=== PATIENT | female | born 1985 | race Caucasian/White ===

== ENCOUNTER → 2017-11-12 07:54 | Outpatient (CLI) | payer OTHER, SELFPAY ==
--- NOTE | 2017-11-12 13:44 | BRONCHALL ---
Bronchoprovocation Challenge - Bronchoprovocation Challenge Bronchoprovocation Challenge: BRONCHOPROVOCATION STUDY INTERPRETATION Brief HPI: Patient is a 32 year old female, currently under the care of Dr. Parekh, who presents to [facility] for a bronchoprovocation study secondary to diagnosis of cough. Respiratory therapist reports good effort and reproducible results. Patient did report to having some coffee the morning of testing. Interpretation: Initial spirometry showed no large airways obstructive ventilatory defect. The patient was then given increasingly concentrated doses of methacholine in a stepwise fashion, using a modified ATS protocol. The patient?s maximum reduction in FEV1 was 10 percent predicted. Impression: Negative Bronchoprovocation study. This is NOT consistent with the diagnosis of asthma. The use of caffeine on the day of testing does increase the risk of a false negative test. If still clinically concerned, repeat testing would not be unreasonable.
--- NOTE | 2017-11-12 13:47 | BRONCHALL_ITS ---
Bronchoprovocation Challenge - Bronchoprovocation Challenge Bronchoprovocation Challenge: BRONCHOPROVOCATION STUDY INTERPRETATION Brief HPI: Patient is a 32 year old female, currently under the care of Dr. Parekh , who presents to [facility] for a bronchoprovocation study secondary to diagnosis of cough. Respiratory therapist reports good effort and reproducible results. Patient did report to having some coffee the morning of testing. Interpretation: Initial spirometry showed no large airways obstructive ventilatory defect. The patient was then given increasingly concentrated doses of methacholine in a stepwise fashion, using a modified ATS protocol. The patient?s maximum reduction in FEV1 was 10 percent predicted. Impression: Negative Bronchoprovocation study. This is NOT consistent with the diagnosis of asthma. The use of caffeine on the day of testing does increase the risk of a false negative test. If still clinically concerned, repeat testing would not be unreasonable.
== END ==
PROVIDERS: Family Provider Internal Medicine; PCP Internal Medicine; Visit Provider Internal Medicine
DX: R05 Cough (principal); R00.2 Palpitations; R42 Dizziness and giddiness
CPT/HCPCS: 93880; 94070; 95070; J3490; J7674

== ENCOUNTER → 2018-01-19 12:26 | Outpatient (CLI) | payer OTHER, SELFPAY ==
--- NOTE | 2018-01-19 12:32 | ECHOD_ITS ---
Reason For Study: CHEST PAIN Procedure This was a 2D Doppler, Color Flow transthoracic echocardiogram. Exam performed in department. Left Ventricle Normal LV size. Left ventricular systolic function is normal. The estimated ejection fraction is 60 %. Normal diastology for age. No regional wall motion abnormalities noted. Right Ventricle Normal RV size. Normal systolic function. Atria Normal left atrium. Normal right atrium. No doppler evidence for ASD. Mitral Valve There is no mitral annular calcification. Normal mitral valve. Trivial mitral valve insufficiency. Tricuspid Valve Normal tricuspid valve. Trivial tricuspid valve insufficiency. Right ventricular systolic pressure estimated to be 27 mmHg. Aortic Valve Trisinus/trileaflet aortic valve. Normal aortic valve. Pulmonic Valve The pulmonic valve is not well visualized. Great Vessels Normal sized aortic root. Pericardium/Pleural No pericardial effusion. MMode/2D Measurements & Calculations LVIDd: 3.8 cm IVSd: 0.80 cm Ao root diam: 3.1 cm LVIDs: 2.7 cm LVPWd: 0.80 cm LA dimension: 2.5 cm RVDd: 3.0 cm FS: 30.8 % LAV(MOD-bp): 30.6 ml LVAd ap4: 28.5 cm2 SV(MOD-sp4): 47.0 ml LAV(MOD-bp) Indexed: 16.1 ml/m2 EDV(MOD-sp4): 76.8 ml LAV(MOD-sp2): 25.8 ml EDV(sp4-el): 80.3 ml LAV(MOD-sp4): 34.4 ml LVAs ap4: 15.6 cm2 ESV(MOD-sp4): 29.9 ml ESV(sp4-el): 30.0 ml EF(MOD-sp4): 61.1 % EF(sp4-el): 62.6 % SV(sp4-el): 50.3 ml LA A4 area: 14.9 cm2 RA A4 area: 15.6 cm2 Doppler Measurements & Calculations MV E max bob: 81.5 cm/sec Lat Peak E' Bob: 14.7 cm/sec Med Peak E' Bob: 11.5 cm/sec MV A max bob: 78.8 cm/sec E/E' lat: 5.5 E/E' med: 7.1 MV E/A: 1.0 Ao V2 max: 142.9 cm/sec LV V1 max: 109.5 cm/sec PA V2 max: 107.6 cm/sec Ao max P.2 mmHg LV V1 max P.8 mmHg TR max bob: 243.3 cm/sec TR max P.7 mmHg Interpretation Summary Left ventricular systolic function is normal. The estimated ejection fraction is 60 %. Trivial mitral valve insufficiency. Trivial tricuspid valve insufficiency. Right ventricular systolic pressure estimated to be 27 mmHg. Normal diastology for age. Ordering Physician: Brandon Chou Referring Physician: ANUPAM BALLARD Performed By: Teressa Isaacs RDCS
--- NOTE | 2018-01-19 17:37 | STRESSREP ---
Stress Test Report Date: 01/19/2018 Procedure: Exercise tolerance test Indications: Chest pain Consent: Per the patient Procedure: The patient exercised on a Jaime protocol for 12 minutes completing stage 4 achieving a peak heart rate of 181 bpm (97 % predicted maximal heart rate) with a peak blood pressure 160/64 mmHg and a peak MET capacity of approximately 13 MET's. The baseline ECG demonstrated normal sinus rhythm. The peak exercise ECG demonstrated no obvious ECG changes. There were no cardiac dysrhythmias pretest, during exercise, or recovery. The functional capacity was considered excellent. The patient had no complaint of chest discomfort during exercise or recovery. The examination was discontinued secondary to dyspnea. Impression: 1. Technically adequate (percent predicted maximal heart rate greater than 85%) exercise tolerance test 2. Peak exercise ECG with no obvious ECG changes 3. No cardiac dysrhythmias during exercise or recovery This note was generated with [employer] software. It may contain incorrect words, spelling, and punctuation that were not noted in checking the note before signing.
--- NOTE | 2018-01-19 17:40 | STRESSREP_ITS ---
Stress Test Report Date: 01/19/2018 Procedure: Exercise tolerance test Indications: Chest pain Consent: Per the patient Procedure: The patient exercised on a Jaime protocol for 12 minutes completing stage 4 achieving a peak heart rate of 181 bpm (97 % predicted maximal heart rate) with a peak blood pressure 160/64 mmHg and a peak MET capacity of approximately 13 MET's. The baseline ECG demonstrated normal sinus rhythm. The peak exercise ECG demonstrated no obvious ECG changes. There were no cardiac dysrhythmias pretest, during exercise, or recovery. The functional capacity was considered excellent. The patient had no complaint of chest discomfort during exercise or recovery. The examination was discontinued secondary to dyspnea. Impression: 1. Technically adequate (percent predicted maximal heart rate greater than 85% ) exercise tolerance test 2. Peak exercise ECG with no obvious ECG changes 3. No cardiac dysrhythmias during exercise or recovery This note was generated with [employer] software. It may contain incorrect words, spelling, and punctuation that were not noted in checking the note before signing.
== END ==
PROVIDERS: Family Provider Internal Medicine; PCP Internal Medicine; Visit Provider Internal Medicine Cardiovascular Disease
DX: I49.1 Atrial premature depolarization (principal); I49.3 Ventricular premature depolarization; R00.2 Palpitations; R07.9 Chest pain, unspecified; R42 Dizziness and giddiness
CPT/HCPCS: 93017; 93306

== ENCOUNTER 2018-09-27 14:25 | Emergency (ER) | payer OTHER, SELFPAY ==
[2018-09-27 14:27] VITALS: BP 148/91; PULSE 84; RESP 18; TEMP 36.4; O2SAT 100; BMI 26.9
--- NOTE | 2018-09-27 14:59 | EKG12_ITS ---
Test Reason : CP Blood Pressure : / mmHG Vent. Rate : 079 BPM Atrial Rate : 079 BPM P-R Int : 140 ms QRS Dur : 088 ms QT Int : 358 ms P-R-T Axes : 014 051 041 degrees QTc Int : 410 ms Normal sinus rhythm Normal ECG Confirmed by MARIANNE LAKE ([id number]), medical transcription editor ANDRESSA DONALD ([id number]) on 10/01/2018 1:30:09 PM Referred By: KELLEY Confirmed By:MARIANNE LAKE
--- NOTE | 2018-09-27 14:59 | RAD_ITS ---
STUDY: X-RAY CHEST REASON FOR EXAM: Female, 33 years old. Mid and right side chest pain. TECHNIQUE: Single AP portable view of the chest. COMPARISON: None. FINDINGS: EKG electrodes are seen. The lungs are clear and expanded. There is no demonstrated pleural abnormality. Normal size heart. Normal mediastinum and carlyn. Normal visualized pulmonary arteries. Normal visualized aortic arch and descending thoracic aorta. Normal visualized thoracic spine. Normal visualized ribs, clavicles, and shoulders. There is no demonstrated abnormality of the visualized soft tissue structures of the upper abdomen. RAD/Chest 1 View (Portable) IMPRESSION: Normal x-ray examination of the chest. Electronically Signed: Tremayne Pineda, at 15:20 EST , Service support ,
--- NOTE | 2018-09-27 15:01 | ED.VISSUMM ---
- ER Visit Summary Date of Service: 09/27/18 Chief Complaint: Right-sided chest pain History of Present Illness: Patient states that she had nausea and vomiting sharp chest pain on the right worse with deep breathing. She denies shortness of breath. She denies hemoptysis. She denies any leg pain or swelling. 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 She is never had a leg DVT or a pulmonary embolus. She denies any recent exertional chest pain. No cough or fever. Physical Examination: Very well-appearing young female. Vital signs are stable and afebrile. Her blood pressure is 148/91. Her pulse ox is 100% on room air no hypoxia and her heart rates 89. She is in no distress. HEENT exam unremarkable. Neck nontender no JVD. Lungs clear to auscultation bilaterally. Equal and symmetrical. Heart regular rate and rhythm no murmur. Chest wall nontender. Abdomen soft and nontender. Normal bowel sounds no peritoneal signs. Extremities she moves all 4. Calves are nontender no edema nor cords. Equal symmetrical radial pulses. Back nontender. Neurologically she is awake and alert with no focal motor deficits. Test Results: CBC normal. Chemistries unremarkable potassium 3.3. Troponin normal. D-dimer less than 0.27. Chest x-ray portable one view shows normal cardiac silhouette mediastinum. No pneumothorax. No infiltrate. Unremarkable. Read both of myself and radiologist. EKG sinus rhythm rate of 79. No acute signs of MS or ischemia. No S1 Q3 T3. Emergency Department Course and Treatment: Clinically my suspicion is low. She has completely normal vital signs. Repeat exam patient is doing well at 1612. We went over all of her test results with both her and her significant other. Her vital signs remain normal. Both are comfortable with her being discharged home. Treatment Plan: Motrin for any pain and follow-up with her primary care physician. Return to the ER feeling worse. Disposition: Discharge Impression: Atypical right-sided chest pain This note was generated with [employer] dictation software. It may contain incorrect words, spelling, and punctuation that were not noted in review of the chart prior to signing ED Disposition - Plan for ED Patient: Referrals: Gisela Parekh MD [Primary Care Provider] -
--- NOTE | 2018-09-27 15:10 | ED.DCSUM_ITS ---
- ER Visit Summary Date of Service: 09/27/18 Chief Complaint: Right-sided chest pain History of Present Illness: Patient states that she had nausea and vomiting sharp chest pain on the right worse with deep breathing. She denies shortness of breath. She denies hemoptysis. She denies any leg pain or swelling. 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 She is never had a leg DVT or a pulmonary embolus. She denies any recent exertional chest pain. No cough or fever. Physical Examination: Very well-appearing young female. Vital signs are stable and afebrile. Her blood pressure is 148/91. Her pulse ox is 100% on room air no hypoxia and her heart rates 89. She is in no distress. HEENT exam unremarkable. Neck nontender no JVD. Lungs clear to auscultation bilaterally. Equal and symmetrical. Heart regular rate and rhythm no murmur. Chest wall nontender. Abdomen soft and nontender. Normal bowel sounds no peritoneal signs. Extremities she moves all 4. Calves are nontender no edema nor cords. Equal symmetrical radial pulses. Back nontender. Neurologically she is awake and alert with no focal motor deficits. Test Results: CBC normal. Chemistries unremarkable potassium 3.3. Troponin normal. D-dimer less than 0.27. Chest x-ray portable one view shows normal cardiac silhouette mediastinum. No pneumothorax. No infiltrate. Unremarkable. Read both of myself and radiologist. EKG sinus rhythm rate of 79. No acute signs of SC or ischemia. No S1 Q3 T3. Emergency Department Course and Treatment: Clinically my suspicion is low. She has completely normal vital signs. Repeat exam patient is doing well at 1612. We went over all of her test results with both her and her significant other. Her vital signs remain normal. Both are comfortable with her being discharged home. Treatment Plan: Motrin for any pain and follow-up with her primary care physician. Return to the ER feeling worse. Disposition: Discharge Impression: Atypical right-sided chest pain This note was generated with [employer] dictation software. It may contain incorrect words, spelling, and punctuation that were not noted in review of the chart prior to signing ED Disposition - Plan for ED Patient: Referrals: Gisela Parekh MD [Primary Care Provider] -
[2018-09-27 15:14] LABS: Absolute Lymphocyte Count 1.39 X10^3/ul (0.83-4.51); Absolute Neutrophil Count 2.6 X10^3/uL (2.0-7.7); Basophil# 0.01 X10^3/uL; Basophil% 0.2 % (0-1); Eosinophil# 0.13 X10^3/uL; Eosinophils% 2.8 % (0-5); Hematocrit 41.1 % (37-47); Hemoglobin 14.3 g/dl (12.0-15.0); Lymphocyte # 1.39 X10^3/ul (4.0); Lymphocyte % 29.5 % (19-41); Mean Corp Hgb Conc 34.8 g/gl (32-36); Mean Corpuscular Hgb 31.8 pg (27.0-32.0); Mean Corpuscular Volume 91.3 fL (81-99); Mean Platelet Vol. 9.8 fl (6.2-12.0); Monocyte# 0.57 X10^3/uL; Monocyte% 12.1 % (0-10); Neutrophil % 55.2 % (47-70); Platelet Count 193 K/mm3 (150-450); RBC Distribution Width CV 12.4 % (11.6-14.6); RBC Distribution Width SD 40.8 fl (35.1-43.9); White Blood Count 4.7 K/mm3 (4.4-11.0)
[2018-09-27 15:15] LABS: POSITIVE COUNT NO; POSITIVE DIFFERENTIAL NO; POSITIVE MORPHOLOGY NO
[2018-09-27 15:29] LABS: Anion Gap 6 (5-15); BUN 12 mg/dL (7-18); BUN/Creat Ratio 18.7 RATIO (10-20); Calcium,Total 8.1 mg/dL (8.5-10.1); Chloride 111 mmol/L (98-107); Creatinine, Serum 0.64 mg/dL (0.55-1.02); EST Glomerular Filtration Rate 111 mL/min (>60); Est Glom Filt Rate - Afr Amer 135 mL/min (>60); Estimated Creatinine Clearance 119.31 ml/min; Glucose 94 mg/dL (74-106); Potassium 3.3 mmol/L (3.5-5.1); Sodium Level 140 mmol/L (136-145)
[2018-09-27 15:43] LABS: D-Dimer Quantitative (DVT/PE) < 0.27 FEU/ug/m (0.27-0.49)
--- NOTE | 2018-09-27 16:14 | ED.DEP ---
ED Disposition - Plan for ED Patient: Disposition: Home or Assisted Living Instructions: ED Chest Pain Atypical Unkn Cause Referrals: Gisela Parekh MD [Primary Care Provider] - 3-5 Days if not improving Additional Instructions: Motrin for pain. Follow-up with your doctor in the next several days if not improving. Return to ER if increasing pain, shortness of breath or coughing up blood.
[2018-09-27 16:31] VITALS: O2SAT 98
[2018-09-27 16:38] VITALS: BP 121/78; PULSE 83; RESP 16; O2SAT 98
== END 2018-09-27 16:39 | disposition home or self-care (01) ==
PROVIDERS: Emergency Provider Emergency Medicine; Family Provider Internal Medicine; PCP Internal Medicine
DX: R07.89 Other chest pain (principal)
CPT/HCPCS: 71045; 80048; 84484; 85025; 85379; 93005; 99284; A4216

== ENCOUNTER → 2020-12-31 | Outpatient (CLI) | payer OTHER, SELFPAY | END | disposition home or self-care (01) | PROVIDERS: PCP Internal Medicine; Visit Provider Otolaryngology | DX: J32.9 Chronic sinusitis, unspecified (principal) | CPT/HCPCS: 87070; 87205 ==